=== PATIENT | female | born 1950 | race Caucasian/White ===

== ENCOUNTER 2016-09-20 12:34 | Emergency (ER) | payer MEDICARE ==
[2016-09-20] VITALS (7 sets, daily range): BP systolic 121–145; BP diastolic 51–89
[~2016-09-20] VITALS: Ht 162.6 cm; Wt 100.0 kg
[~2016-09-20 12:34] MED LIST: ALBU0.63 NEB; ALBU8.5H3 INH; ALLO100T30 PO; ASPI-621 PO; BUDE10.2 INH; CEFD300C2 PO; CLOP75TA22 PO; ERGO500017 PO; FLUT1BLS INH; FURO80TA77 PO; GABA100C8 PO; HYDR-3138 PO; ISOS30TA19 PO; LOSA1TAB17 PO; METO25TA35 PO; NICO1PAT10 TD; PRED20TA PO; TICA90TA PO
[2016-09-20 13:47] LABS: HEMOGLOBIN 7.9 g/dL (11.7-16.4)
[2016-09-20 13:55] LABS: BLOOD UREA NITROGEN 14 mg/dL (7-18)
[2016-09-20 14:35] LABS: HYPOCHROMIA 2+; POLYCHROMASIA 1+
[2016-09-20 14:36] LABS: SCHISTOCYTES 1+
[2016-09-20 14:37] LABS: ANISOCYTOSIS 2+; MICROCYTOSIS 1+; OVALOCYTES 1+
[2016-09-20] MEDS ORDERED: FUROSEMIDE 20 MG/2 ML IVPush ONE (15:30)
[2016-09-20] MEDS ORDERED: FUROSEMIDE 40 MG/4 ML ONE (16:10)
== END 2016-09-20 17:05 | disposition home or self-care (01) ==
LOC: ED 16:50
DX: D63.1 Anemia in chronic kidney disease (principal); I12.0 Hypertensive chronic kidney disease with stage 5 chronic kidney disease or end stage renal disease; N18.6 End stage renal disease; Z99.2 Dependence on renal dialysis; J44.9 Chronic obstructive pulmonary disease, unspecified; I25.10 Atherosclerotic heart disease of native coronary artery without angina pectoris; Z88.5 Allergy status to narcotic agent; Z88.8 Allergy status to other drugs, medicaments and biological substances
CPT/HCPCS: 36415; 36430; 71010; 80048; 82040; 82962; 85025; 85610; 85730; 86850; 86900; 86923; 93005; 96374; 99285; J1940; P9016

== ENCOUNTER 2016-10-15 05:10 | Day surgery (SDC) | payer MEDICARE ==
[~2016-10-15] VITALS: Ht 162.6 cm; Wt 99.0 kg
[2016-10-15] MEDS ORDERED: SODIUM CHLORIDE 0.9% 1,000 ML IV SCH (06:07)
[2016-10-15] MEDS ORDERED: BUDE10.2 INH (06:15)
[2016-10-15] MEDS ORDERED: ALLO100T30 PO (06:15)
[2016-10-15] MEDS ORDERED: SENN-109 PO (06:15)
[2016-10-15] MEDS ORDERED: MIDO10TA PO (06:15)
[2016-10-15] MEDS ORDERED: DSS PO (06:15)
[2016-10-15] MEDS ORDERED: CALC0.25 PO (06:15)
[2016-10-15 06:19] VITALS: BP 149/84
[2016-10-15] MEDS ORDERED: LIDOCAINE 1%, 2ML SQ PRN (06:30)
[2016-10-15] MEDS ORDERED: HEPARIN 1,000 UNITS/ML, 10ML ONE (06:31)
[2016-10-15] MEDS ORDERED: BUPIVACAINE/PF 0.5% ONE (06:31)
[2016-10-15] MEDS ORDERED: PROTAMINE SULFATE 10 MG/ML, 5ML ONE (06:31)
[2016-10-15] MEDS ORDERED: THROMBIN 5,000 UNIT VIAL TP ONE (06:32)
[2016-10-15] MEDS ORDERED: MIDAZOLAM 1 MG/ML, 2ML ONE (06:50)
[2016-10-15] MEDS ORDERED: FENTANYL PF 250 MCG/5ML ONE (06:50)
[2016-10-15] MEDS ORDERED: CEFAZOLIN 1,000 MG ONE (07:28)
[2016-10-15] MEDS ORDERED: ALBUTEROL SULFATE 2.5 MG/3 ML NPPB PRN (08:00)
[2016-10-15] MEDS ORDERED: hydrALAzine 20 MG/ML, 1ML IV PRN (08:00)
[2016-10-15] MEDS ORDERED: EPHEDRINE 50 MG/ML, 1ML IVPush PRN (08:00)
[2016-10-15] MEDS ORDERED: ACETAMINOPHEN 325 MG TABLET PO PRN (08:00)
[2016-10-15] MEDS ORDERED: ALBUTEROL/IPRATROPIUM 2.5MG/0.5MG, 3 ML NPPB PRN (08:00)
[2016-10-15] MEDS ORDERED: LABETALOL 5MG/ML, 20ML IV PRN (08:00)
[2016-10-15] MEDS ORDERED: morphine SULFATE 10 MG/ML, 1ML IV PRN (08:00)
[2016-10-15] MEDS ORDERED: ONDANSETRON 2MG/ML, 2ML IVPush PRN (08:00)
[2016-10-15] MEDS ORDERED: FENTANYL PF 100 MCG/2ML IV PRN (08:00)
[2016-10-15] MEDS ORDERED: METOPROLOL 1 MG/ML, 5ML IV PRN (08:00)
== END 2016-10-15 10:00 | disposition home or self-care (01) ==
LOC: OUT 05:10
PROVIDERS: ATTEND Surgery Vascular Surgery
DX: I12.0 Hypertensive chronic kidney disease with stage 5 chronic kidney disease or end stage renal disease (principal); N18.6 End stage renal disease; J44.9 Chronic obstructive pulmonary disease, unspecified; I25.10 Atherosclerotic heart disease of native coronary artery without angina pectoris; I25.2 Old myocardial infarction; Z95.5 Presence of coronary angioplasty implant and graft
CPT/HCPCS: 36415; 36821; 80047; 85610; 85730; J0690; J1644; J2250; J3010; J3490; J7030; J2720

== ENCOUNTER → 2017-03-26 | Outpatient (CLI) | payer MEDICARE ==
[~2017-03-26] MED LIST changes: -ALBU8.5H3 INH; +ALBU8.5H8 INH; +CALC0.25 PO; -CEFD300C2 PO; +CEFD300C37 PO; -CLOP75TA22 PO; +CLOP75TA52 PO; +DSS PO; +GABA-826 PO; -GABA100C8 PO; -HYDR-3138 PO; +HYDR-3237 PO; -ISOS30TA19 PO; +ISOS30TA21 PO; +MIDO10TA PO; +NICO-485 TD; -NICO1PAT10 TD; +SENN-99 PO
== END | disposition home or self-care (01) ==
LOC: CVU 06:36
PROVIDERS: ATTEND Internal Medicine Cardiovascular Disease
DX: I08.3 Combined rheumatic disorders of mitral, aortic and tricuspid valves (principal); J44.9 Chronic obstructive pulmonary disease, unspecified; I25.10 Atherosclerotic heart disease of native coronary artery without angina pectoris; I50.1 Left ventricular failure, unspecified; I25.2 Old myocardial infarction; N18.6 End stage renal disease; I87.2 Venous insufficiency (chronic) (peripheral); Z95.5 Presence of coronary angioplasty implant and graft; Z87.891 Personal history of nicotine dependence; Z99.2 Dependence on renal dialysis
CPT/HCPCS: 93306; 93922; 93925; 93970